=== PATIENT | female | born 1950 | race Caucasian/White ===

== ENCOUNTER 2018-12-16 07:25 | Day surgery (SDC) | payer OTHER ==
[~2018-12-16] VITALS: Ht 147.3 cm; Wt 107.5 kg
[~2018-12-16 07:25] MED LIST: ALLO300 PO; ASPI81 PO; DICL2100G TP; FLUT16H NASAL; GABA-531 PO; GLYB5 PO; LORA10TA7 PO; METR500 PO; MONT10TA21 PO; OMEP20 PO; SODIUM CHLORIDE 0.9% 1,000 ML IV ONE
[2018-12-16] MEDS ORDERED: BENZOCAINE 20% 50 MCG/SPRAY 57 GM TP ONE (07:26)
[2018-12-16] MEDS ORDERED: LIDOCAINE 4% 50 ML SOLUTION TP ONE (07:26)
[2018-12-16] MEDS ORDERED: LIDOCAINE 2% 11 ML JELLY TP ONE (07:26)
[2018-12-16] MEDS ORDERED: FentaNYL CITRATE-PF 100 MCG/2 ML VIAL ONE (08:06)
[2018-12-16] MEDS ORDERED: MIDAZOLAM HCL 2 MG/2 ML VIAL ONE (08:06)
[2018-12-16 08:18] LABS: GLUCOMETER DEV NAME(LOC) SDS.; GLUCOSE,POINT OF CARE 105 MG/DL (70-110)
[2018-12-16] MEDS ORDERED: HYDR200T4 PO (08:34)
[2018-12-16] MEDS ORDERED: ACET-2744 PO (08:34)
[2018-12-16] MEDS ORDERED: GLYB2.5 PO (08:34)
[2018-12-16] MEDS ORDERED: GABA-531 PO (08:34)
[2018-12-16] MEDS ORDERED: ERGO500014 PO (08:34)
[2018-12-16] MEDS ORDERED: ALBU8.5H8 IH (08:34)
[2018-12-16] MEDS ORDERED: MethylPREDNISolone SOD SUCC 125 MG/2 ML VIAL ONE (09:29)
[2018-12-16] MEDS ORDERED: MethylPREDNISolone SOD SUCC 40 MG/ML VIAL IVP ONE (10:00)
== END 2018-12-16 11:00 | disposition home or self-care (01) ==
LOC: SURGERY 07:25
PROVIDERS: ATTEND Internal Medicine Critical Care Medicine
DX: J38.4 Edema of larynx (principal); B37.0 Candidal stomatitis; Z90.710 Acquired absence of both cervix and uterus; Z98.42 Cataract extraction status, left eye; Z98.41 Cataract extraction status, right eye; M17.10 Unilateral primary osteoarthritis, unspecified knee
CPT/HCPCS: 31623; 31624; 71045; 82962; 87015; 87070; 87101; 87206; 87220; 88108; 88312; 93005; J2250; J2930; J3010; J7030